=== PATIENT | male | born 1950 | race Caucasian/White ===

== ENCOUNTER 2016-06-03 09:30 | Emergency (ER) | payer MEDICARE, OTHER ==
[2016-06-03 10:01] LABS: HEMOGLOBIN 15.2 gm/dl (14.0-17.5); RED BLOOD COUNT 4.95 M/UL (4.20-5.50); WHITE BLOOD COUNT 8.6 K/UL (4.5-11.0)
[2016-06-03 10:23] LABS: BUN/CREATININE RATIO 14 (0-10)
== END 2016-06-03 19:00 | disposition home or self-care (01) ==
LOC: ER1 09:30 → ZEROF 12:22
PROVIDERS: Emergency Medicine
DX: I16.0 Hypertensive urgency (principal); R07.89 Other chest pain; R00.2 Palpitations; E78.5 Hyperlipidemia, unspecified; I10 Essential (primary) hypertension; Z88.0 Allergy status to penicillin; Z88.2 Allergy status to sulfonamides; Z88.5 Allergy status to narcotic agent; Z79.899 Other long term (current) drug therapy
CPT/HCPCS: ECHO; 36415; 71010; 78452; 80053; 80061; 82550; 82553; 83874; 84484; 85025; 93005; 93017; 93306; 99285; A9502

== ENCOUNTER 2020-10-08 12:10 | Emergency (ER) | payer OTHER ==
[2020-10-08 13:28] LABS: HEMOGLOBIN 15.2 gm/dl (14.0-17.5); RED BLOOD COUNT 4.94 M/UL (4.20-5.50); WHITE BLOOD COUNT 10.7 K/UL (4.5-11.0)
[2020-10-08 13:55] LABS: BUN/CREATININE RATIO 10 (0-10)
== END 2020-10-08 16:12 | disposition home or self-care (01) ==
LOC: ER1 12:10
PROVIDERS: Physician Assistant
DX: R42 Dizziness and giddiness (principal); I10 Essential (primary) hypertension; Z86.73 Personal history of transient ischemic attack (TIA), and cerebral infarction without residual deficits; Z88.1 Allergy status to other antibiotic agents; Z88.0 Allergy status to penicillin
CPT/HCPCS: 71045; 80053; 82550; 82553; 83874; 84484; 85025; 93005; 99284